=== PATIENT | male | born 1945 ===

== ENCOUNTER 2022-10-31 05:47 | Day surgery (SDC) | payer OTHER ==
[~2022-10-31] VITALS: Ht 167.6 cm; Wt 82.6 kg
[~2022-10-31 05:47] MED LIST: ATORVASTATIN CA20 MG PO; COZAAR100 MG PO
== END 2022-10-31 10:45 | disposition home or self-care (01) ==
LOC: CIR.AMB 05:47
PROVIDERS: ATTEND Surgery Surgery of the Hand
DX: M65.842 Other synovitis and tenosynovitis, left hand (principal); Z20.822 Contact with and (suspected) exposure to COVID-19